=== PATIENT | female | born 2000 | race African-American/Black ===

== ENCOUNTER 2022-12-08 07:35 | Inpatient (IN) | payer OTHER ==
[2022-12-08] MEDS: ELECTROLYTE-148 SOLN 1,000 ML IV SCH ×2 (08:15→16:00)
[2022-12-08 08:48] VITALS: BMI 28.3
[2022-12-08 09:38] LABS: INR 0.99 (0.83-1.09); PROTHROMBIN TIME (PATIENT) 11.5 SEC (9.7-13.0)
[2022-12-08 09:41] LABS: ACTIVATED PTT 26.7 SECONDS (25.2-36.5)
[2022-12-08 09:45] LABS: BASO % 0.5 % (0-2.0); EOS % 0.7 % (0-4.5); HEMATOCRIT 27.3 % (32.4-45.2); HEMOGLOBIN 8.9 GM/dL (10.7-15.3); LYMPH % 20.2 % (8-40); MCH 23.4 pg (25.7-33.7); MCHC 32.7 g/dl (32.0-36.0); MEAN CELL VOLUME 71.5 fl (80-96); MEAN PLT VOLUME 8.2 fl (7.5-11.1); NEUT % 64.6 % (42.8-82.8); PLATELET COUNT 273 10^3/uL (134-434); RBC 3.82 M/mm3 (3.60-5.2); RDW 16.5 % (11.6-15.6); WHITE BLOOD COUNT 8.3 K/mm3 (4.0-10.0)
[2022-12-08] MEDS ORDERED: PROMETHAZINE HCL 25 MG/1 ML VIAL IVPB ONE (09:57)
[2022-12-08] MEDS ORDERED: BUTORPHANOL TARTRATE 1 MG/ML VIAL IVPB ONE (09:57)
[2022-12-08] MEDS ORDERED: BUTORPHANOL TARTRATE 1 MG/ML VIAL ONE (10:02)
[2022-12-08] MEDS ORDERED: PROMETHAZINE HCL 25 MG/1 ML VIAL ONE (10:02)
[2022-12-08] MEDS ORDERED: FENTANYL/BUPIVACAINE/NS/PF - PCEA - 50 ML DISP.SYRIN EP ONE ×3 (10:11→22:03)
[2022-12-08 10:45] LABS: POTASSIUM 4.1 mmol/L (3.5-5.1)
[2022-12-08 10:47] LABS: BLOOD UREA NITROGEN 5.3 mg/dL (7-18); CALCIUM 8.3 mg/dL (8.5-10.1)
[2022-12-08 10:50] LABS: CREATININE 0.6 mg/dL (0.55-1.3)
[2022-12-08] MEDS ORDERED: NALOXONE HCL 0.4 MG/ML VIAL IVPUSH PRN (12:54)
[2022-12-08] MEDS ORDERED: FENTANYL/BUPIVACAINE/NS/PF - PCEA - 50 ML DISP.SYRIN EP SCH (13:00)
[2022-12-08 13:51] LABS: HIV INTERPRETATION NEGATIVE (NEGATIVE)
[2022-12-08] MEDS ORDERED: OXYTOCIN 30 UNITS in 0.9% NS 30 UNIT/500 ML INFUS.BAG IVPB ONE (19:10)
[2022-12-08] MEDS ORDERED: OXYTOCIN 30 UNITS in 0.9% NS 30 UNIT/500 ML INFUS.BAG IVPB SCH (19:30)
[2022-12-08] MEDS ORDERED: FENTANYL CITRATE/PF 50 MCG/ML VIAL ONE (22:48)
[2022-12-08] MEDS ORDERED: OXYTOCIN 20 UNITS in 0.9% NS 20 UNIT/1,000 ML INFUS.BAG IV ONE (23:40)
[2022-12-08] MEDS ORDERED: LIDOCAINE HCL 1% PRESERVATIVE FREE - 30ML VIAL ONE (23:40)
[2022-12-09] MEDS ORDERED: IBUPROFEN 600 MG TABLET (FP) PO ONE (00:53)
[2022-12-09] MEDS ORDERED: METHYLERGONOVINE MALEATE 0.2 MG/1 ML AMP IM PRN (01:02)
[2022-12-09] MEDS ORDERED: WITCH HAZEL 50% (TUCKS) 40 PAD/JAR PAD TP PRN (01:02)
[2022-12-09] MEDS ORDERED: ACETAMINOPHEN 325 MG TABLET (FP) PO PRN (01:02)
[2022-12-09] MEDS ORDERED: BENZOCAINE 28 GM HEMORRHOIDAL OINTMENT TP PRN (01:02)
[2022-12-09] MEDS ORDERED: BENZOCAINE 20% 57 GM BOTTLE TP PRN (01:02)
[2022-12-09] MEDS ORDERED: BISACODYL 10 MG SUPP.RECT RC PRN (01:02)
[2022-12-09] MEDS ORDERED: oxyCODONE HCL 5 MG TABLET PO PRN (01:02)
[2022-12-09] MEDS: IBUPROFEN 600 MG TABLET (FP) PO PRN ×3 (01:09→17:34)
[2022-12-09] MEDS ORDERED: OXYTOCIN 20 UNITS in 0.9% NS 20 UNIT/1,000 ML INFUS.BAG IV SCH (01:15)
[2022-12-09] MEDS: FERROUS SO4 325 MG TABLET (FP) PO SCH ×2 (10:41→17:34)
[2022-12-09] MEDS: PRENATAL VITAMINS W/ FOLIC ACID TABLET (FP) PO SCH (10:41)
[2022-12-10] MEDS: IBUPROFEN 600 MG TABLET (FP) PO PRN ×2 (00:31→09:02)
[2022-12-10 08:16] LABS: BASO % 0.4 % (0-2.0); EOS % 0.9 % (0-4.5); HEMATOCRIT 25.4 % (32.4-45.2); HEMOGLOBIN 8.4 GM/dL (10.7-15.3); LYMPH % 22.9 % (8-40); MCH 23.9 pg (25.7-33.7); MEAN CELL VOLUME 72.6 fl (80-96); MONO % 9.6 % (3.8-10.2); NEUT % 66.2 % (42.8-82.8); PLATELET COUNT 264 10^3/uL (134-434); RBC 3.51 M/mm3 (3.60-5.2); RDW 16.4 % (11.6-15.6)
[2022-12-10] MEDS: FERROUS SO4 325 MG TABLET (FP) PO SCH ×2 (08:43→17:30)
[2022-12-10] MEDS: PRENATAL VITAMINS W/ FOLIC ACID TABLET (FP) PO SCH (09:03)
[2022-12-10 13:43] VITALS: BP 94/59; PULSE 62; RESP 17; TEMP 97.7
[2022-12-10] MEDS ORDERED: SENNOSIDES/DOCUSATE COMBO (SENNA PLUS) TABLET (UD) PO PRN (22:00)
== END 2022-12-10 18:10 | disposition home or self-care (01) | DRG 560 ==
LOC: JLDR 07:35 → J3W 12-09 02:46
PROVIDERS: ADMIT Obstetrics & Gynecology; ATTEND Obstetrics & Gynecology
PROC: 10E0XZZ Delivery of Products of Conception, External Approach (ICD-10-PCS; principal; 2022-12-09)
PROC: 0HQ9XZZ Repair Perineum Skin, External Approach (ICD-10-PCS; 2022-12-09)
DX: O70.0 First degree perineal laceration during delivery (principal); Z37.0 Single live birth; Z3A.40 40 weeks gestation of pregnancy
CPT/HCPCS: 36415; 80048; 85025; 85461; 85610; 85730; 86780; 86850; 86900; 86901; 87389; 96372; J2790